=== PATIENT | male | born 1975 | race American Indian/Alaskan Native ===

== ENCOUNTER 2018-11-27 15:55 | Emergency (ER) | payer BC, MEDICAID ==
[~2018-11-27] VITALS: Ht 180.3 cm; Wt 154.0 kg
[~2018-11-27 15:55] MED LIST: TRAM50TA2 PO
[2018-11-27 15:57] VITALS: BP 152/83
[2018-11-27] MEDS ORDERED: TETanus/Pertussis (Acell)/Diphther VAC/PF (Tdap-Adult) 0.5ml syringe IM ONE (16:15)
[2018-11-27] MEDS ORDERED: LIDOcaine/epinephrine TOPICAL 5 ML BTL TOP ONE (16:15)
[2018-11-27] MEDS ORDERED: HYDROcodone/acetaminophen 10/325mg tab PO ONE (16:25)
[2018-11-27] MEDS ORDERED: HYDR-3965 PO (16:48)
[2018-11-27] MEDS ORDERED: CEPH-572 PO (16:48)
== END 2018-11-27 17:52 | disposition home or self-care (01) ==
LOC: ER 15:55
DX: S61.210A Laceration without foreign body of right index finger without damage to nail, initial encounter (principal); G89.29 Other chronic pain; Z88.0 Allergy status to penicillin; Z79.899 Other long term (current) drug therapy; W26.8XXA Contact with other sharp object(s), not elsewhere classified, initial encounter; Y93.89 Activity, other specified; Y92.89 Other specified places as the place of occurrence of the external cause; Y99.8 Other external cause status
CPT/HCPCS: 12001; 73140; 90471; 90715; 99283